=== PATIENT | male | born 1990 | race Hispanic/Latino ===

== ENCOUNTER 2019-01-16 02:49 | Emergency (ER) | payer OTHER ==
[~2019-01-16] VITALS: Ht 182.9 cm; Wt 79.4 kg
--- OUTSIDE RECORDS SUMMARY | 2019-01-16 02:51 | XMS REPORT | Clinical Summary ---
Author Author [facility] Address Unknown Phone Unavailable Care Team Providers Care Extruder Operator Multiple Name Role Phone Tristin Vences PCP Allergies Comments Active Allergy Reactions Severity Noted Date cats Other Swelling 10/23/2012 Medications End Date Status Medication Sig Dispensed Refills Start Date Active multivitamin capsule Take 1 0 capsule by mouth daily. Active buprenorphine-naloxone Place 1 0 (SUBOXONE) 2-0.5 mg Subl tablet under the tongue daily. Active Problems Problem Noted Date Epigastric pain 07/07/2016 Chronic hepatitis C 01/26/2013 Risk of as incidental finding, in female partner 12/03/2012 Depression 12/03/2012 HCV antibody positive 10/23/2012 Abnormal LFTs 10/23/2012 Anemia 10/23/2012 HCV (hepatitis C virus) 10/23/2012 Hair loss 10/23/2012 Immunity status testing 10/23/2012 Family History Medical History Relation Name Comments Unremarkable Brother Unremarkable Father Unremarkable Mother Eczema Sister Relation Name Status Comments Brother Alive Father Alive Mother Alive Sister Alive Social History Date Tobacco Use Types Packs/Day Years Used Quit: 06/22/2015 Former Smoker Cigarettes 2 Alcohol Use Drinks/Week oz/Week Comments No Sex Assigned at Date Recorded Not on file Industry Job Start Date Occupation Not on file Not on file Not on file Travel End Travel History Travel Start No recent travel history available. Last Filed Vital Signs Not on file Plan of Treatment Not on file Results Not on fileafter 01/15/2018 Insurance Payer Benefit Subscriber ID Type Phone Address Plan / Group MEDICAID - MEDICAID [facility] xxxxxxxxx Medicaid CARE COMM STAR Contracted PLAN
--- OUTSIDE RECORDS SUMMARY | 2019-01-16 02:52 | XMS REPORT ---
Author Author [facility] Address Unknown Phone Unavailable Care Team Providers Care Supervisor Reclamation Name Role Phone PHILIP CEBALLOS Unavailable Unavailable SOCORRO ANTONY Unavailable Unavailable THOMAS QUIROGA Unavailable Unavailable Nick SNELL Unavailable Unavailable MEAGHAN BAKER Unavailable Unavailable Problems This patient has no known problems. Allergies, Adverse Reactions, Alerts This patient has no known allergies or adverse reactions. Medications This patient has no known medications. Results Test Description Test Time Test Comments Text Results Atomic Results Result Comments HEPATITIS C PCR, QUANTITATIVE 2017-11-26 18:49:00 HCV RESULT COMPONENT (BEAKER) (test yfnd=2689) HCV RNA not detected HCV RNA not detected This test uses a Real-Time Polymerase Chain Reaction (RT-PCR) methodology and wa s performed using AMBER Ampliprep/AMBER TaqMan HCV test kit version 2.0 ([employer]).Reportable range for this assay is 15 - 100,000,000 IU per mL (1.18 - 8.00 Log IU/mL).BASIC METABOLIC [id number] 13:12:00* Test Item Value Reference Range Comments SODIUM (BEAKER) (test zbkk=240) 139 meq/L 136-145 POTASSIUM (BEAKER) (test ctya=267) 4.0 meq/L 3.5-5.1 Specimen slightly hemolyzed CHLORIDE (BEAKER) (test fgmh=038) 106 meq/L 98-107 CO2 (BEAKER) (test xjig=206) 23 meq/L 22-29 BLOOD UREA NITROGEN (BEAKER) (test bxgr=288) 14 mg/dL 7-21 CREATININE (BEAKER) (test twfy=673) 0.80 mg/dL 0.57-1.25 Specimen slightly hemolyzed GLUCOSE RANDOM (BEAKER) (test lxvj=478) 97 mg/dL 70-105 CALCIUM (BEAKER) (test coor=993) 9.5 mg/dL 8.4-10.2 EGFR (BEAKER) (test eodi=4601) mL/min/1.73 sq m INSUFFICIENT CLINICAL DATA TO CALCULATE ESTIMATED GFR. HEPATIC FUNCTION [id number] 12:45:00* Test Item Value Reference Range Comments TOTAL PROTEIN (BEAKER) (test skym=324) 7.3 gm/dL 6.0-8.3 Specimen slightly hemolyzed ALBUMIN (BEAKER) (test pusc=3252) 4.5 g/dL 3.5-5.0 Specimen slightly hemolyzed BILIRUBIN TOTAL (BEAKER) (test szmi=442) 0.3 mg/dL 0.2-1.2 Specimen slightly hemolyzed BILIRUBIN DIRECT (BEAKER) (test vujp=015) 0.1 mg/dL 0.1-0.5 Specimen slightly hemolyzed ALKALINE PHOSPHATASE (BEAKER) (test htat=502) 76 U/L 40-150 AST (SGOT) (BEAKER) (test tlfo=022) 16 U/L 5-34 Specimen slightly hemolyzed ALT (SGPT) (BEAKER) (test tqzf=098) 8 U/L 6-55 Specimen slightly hemolyzed CBC W/PLT COUNT & AUTO [id number] 12:23:00* Test Item Value Reference Range Comments WHITE BLOOD CELL COUNT (BEAKER) (test syhk=043) 5.9 K/ L 3.5-10.5 RED BLOOD CELL COUNT (BEAKER) (test ydyf=460) 4.07 M/ L 4.63-6.08 HEMOGLOBIN (BEAKER) (test gtts=637) 12.5 GM/DL 13.7-17.5 HEMATOCRIT (BEAKER) (test zeed=111) 37.8 % 40.1-51.0 MEAN CORPUSCULAR VOLUME (BEAKER) (test akwf=551) 92.9 fL 79.0-92.2 MEAN CORPUSCULAR HEMOGLOBIN (BEAKER) (test rrje=134) 30.7 pg 25.7-32.2 MEAN CORPUSCULAR HEMOGLOBIN CONC (BEAKER) (test dqma=025) 33.1 GM/DL 32.3-36.5 RED CELL DISTRIBUTION WIDTH (BEAKER) (test cgke=072) 13.1 % 11.6-14.4 PLATELET COUNT (BEAKER) (test anay=017) 293 K/CU MM 150-450 MEAN PLATELET VOLUME (BEAKER) (test ilkb=904) 10.5 fL 9.4-12.4 NUCLEATED RED BLOOD CELLS (BEAKER) (test ivca=726) 0 /100 WBC 0-0 NEUTROPHILS RELATIVE PERCENT (BEAKER) (test mbji=479) 61 % LYMPHOCYTES RELATIVE PERCENT (BEAKER) (test yxzj=686) 27 % MONOCYTES RELATIVE PERCENT (BEAKER) (test johq=427) 7 % EOSINOPHILS RELATIVE PERCENT (BEAKER) (test ixbr=684) 4 % BASOPHILS RELATIVE PERCENT (BEAKER) (test cpxu=262) 1 % NEUTROPHILS ABSOLUTE COUNT (BEAKER) (test fzwf=352) 3.56 K/ L 1.78-5.38 LYMPHOCYTES ABSOLUTE COUNT (BEAKER) (test mwzc=971) 1.59 K/ L 1.32-3.57 MONOCYTES ABSOLUTE COUNT (BEAKER) (test wumo=927) 0.43 K/ L 0.30-0.82 EOSINOPHILS ABSOLUTE COUNT (BEAKER) (test drof=248) 0.21 K/ L 0.04-0.54 BASOPHILS ABSOLUTE COUNT (BEAKER) (test jnrl=247) 0.05 K/ L 0.01-0.08 IMMATURE GRANULOCYTES-RELATIVE PERCENT (BEAKER) (test ubwx=3659) 0 % 0-1 HEPATITIS C PCR, [id number] 09:23:00* Test Item Value Reference Range Comments HCV RESULT COMPONENT (BEAKER) (test yauz=4135) HCV RNA not detected HCV RNA not detected This test uses a Real-Time Polymerase Chain Reaction (RT-PCR) methodology and wa s performed using [employer] Ampliprep/AMBER TaqMan HCV test kit version 2.0 ([employer]).Reportable range for this assay is 15 - 100,000,000 IU per mL (1.18 - 8.00 Log IU/mL).BASIC METABOLIC [id number] 16:17:00* Test Item Value Reference Range Comments SODIUM (BEAKER) (test dyuy=837) 138 meq/L 136-145 POTASSIUM (BEAKER) (test pfre=234) 3.7 meq/L 3.5-5.1 CHLORIDE (BEAKER) (test ccrx=139) 102 meq/L 98-107 CO2 (BEAKER) (test dxbg=963) 28 meq/L 22-29 BLOOD UREA NITROGEN (BEAKER) (test uugj=583) 12 mg/dL 7-21 CREATININE (BEAKER) (test dohs=440) 0.79 mg/dL 0.57-1.25 GLUCOSE RANDOM (BEAKER) (test yiut=464) 65 mg/dL 70-105 CALCIUM (BEAKER) (test skwq=828) 9.7 mg/dL 8.4-10.2 EGFR (BEAKER) (test xyqy=8953) mL/min/1.73 sq m INSUFFICIENT CLINICAL DATA TO CALCULATE ESTIMATED GFR. HEPATIC FUNCTION [id number] 16:16:00* Test Item Value Reference Range Comments TOTAL PROTEIN (BEAKER) (test bqco=056) 6.8 gm/dL 6.0-8.3 ALBUMIN (BEAKER) (test llxv=9410) 4.6 g/dL 3.5-5.0 BILIRUBIN TOTAL (BEAKER) (test tbcz=052) 0.7 mg/dL 0.2-1.2 BILIRUBIN DIRECT (BEAKER) (test sqll=987) 0.2 mg/dL 0.1-0.5 ALKALINE PHOSPHATASE (BEAKER) (test lkbg=660) 74 U/L 40-150 AST (SGOT) (BEAKER) (test jeph=568) 16 U/L 5-34 ALT (SGPT) (BEAKER) (test ijtd=007) 7 U/L 6-55 CBC W/PLT COUNT & AUTO [id number] 15:58:00* Test Item Value Reference Range Comments WHITE BLOOD CELL COUNT (BEAKER) (test xffv=662) 5.9 K/ L 3.5-10.5 RED BLOOD CELL COUNT (BEAKER) (test mhgk=251) 4.59 M/ L 4.63-6.08 HEMOGLOBIN (BEAKER) (test eisb=699) 13.8 GM/DL 13.7-17.5 HEMATOCRIT (BEAKER) (test bofc=091) 41.8 % 40.1-51.0 MEAN CORPUSCULAR VOLUME (BEAKER) (test hita=702) 91.1 fL 79.0-92.2 MEAN CORPUSCULAR HEMOGLOBIN (BEAKER) (test kxxj=333) 30.1 pg 25.7-32.2 MEAN CORPUSCULAR HEMOGLOBIN CONC (BEAKER) (test lklo=615) 33.0 GM/DL 32.3-36.5 RED CELL DISTRIBUTION WIDTH (BEAKER) (test lued=308) 13.6 % 11.6-14.4 PLATELET COUNT (BEAKER) (test pxyb=790) 295 K/CU MM 150-450 MEAN PLATELET VOLUME (BEAKER) (test ikdp=884) 10.4 fL 9.4-12.4 NUCLEATED RED BLOOD CELLS (BEAKER) (test vrzl=825) 0 /100 WBC 0-0 NEUTROPHILS RELATIVE PERCENT (BEAKER) (test ffrp=326) 64 % LYMPHOCYTES RELATIVE PERCENT (BEAKER) (test fjrm=877) 25 % MONOCYTES RELATIVE PERCENT (BEAKER) (test axiz=402) 7 % EOSINOPHILS RELATIVE PERCENT (BEAKER) (test mdyr=583) 3 % BASOPHILS RELATIVE PERCENT (BEAKER) (test ckgw=771) 1 % NEUTROPHILS ABSOLUTE COUNT (BEAKER) (test qeyc=367) 3.77 K/ L 1.78-5.38 LYMPHOCYTES ABSOLUTE COUNT (BEAKER) (test jrqy=849) 1.51 K/ L 1.32-3.57 MONOCYTES ABSOLUTE COUNT (BEAKER) (test oktt=389) 0.41 K/ L 0.30-0.82 EOSINOPHILS ABSOLUTE COUNT (BEAKER) (test sjca=006) 0.20 K/ L 0.04-0.54 BASOPHILS ABSOLUTE COUNT (BEAKER) (test utin=166) 0.03 K/ L 0.01-0.08 IMMATURE GRANULOCYTES-RELATIVE PERCENT (BEAKER) (test kqel=0976) 0 % 0-1 BASIC METABOLIC [id number] 16:17:00* Test Item Value Reference Range Comments SODIUM (BEAKER) (test rjxj=192) 140 meq/L 136-145 POTASSIUM (BEAKER) (test iqeo=249) 3.8 meq/L 3.5-5.1 CHLORIDE (BEAKER) (test yzta=289) 105 meq/L 98-107 CO2 (BEAKER) (test qkbd=164) 28 meq/L 22-29 BLOOD UREA NITROGEN (BEAKER) (test yhvm=804) 17 mg/dL 7-21 CREATININE (BEAKER) (test meau=700) 0.78 mg/dL 0.57-1.25 GLUCOSE RANDOM (BEAKER) (test xqec=970) 76 mg/dL 70-105 CALCIUM (BEAKER) (test qigh=207) 9.4 mg/dL 8.4-10.2 EGFR (BEAKER) (test cnzv=3940) mL/min/1.73 sq m INSUFFICIENT CLINICAL DATA TO CALCULATE ESTIMATED GFR. HEPATIC FUNCTION [id number] 16:07:00* Test Item Value Reference Range Comments TOTAL PROTEIN (BEAKER) (test qhgr=296) 7.7 gm/dL 6.0-8.3 ALBUMIN (BEAKER) (test faav=7543) 4.4 g/dL 3.5-5.0 BILIRUBIN TOTAL (BEAKER) (test kmxx=944) 0.3 mg/dL 0.2-1.2 BILIRUBIN DIRECT (BEAKER) (test ngbz=220) 0.1 mg/dL 0.1-0.5 ALKALINE PHOSPHATASE (BEAKER) (test qtdg=296) 102 U/L 40-150 AST (SGOT) (BEAKER) (test apbv=971) 16 U/L 5-34 ALT (SGPT) (BEAKER) (test ijhh=870) 9 U/L 6-55 Specimen slightly lipemicCBC W/PLT COUNT & AUTO [id number] 15:38:00 * Test Item Value Reference Range Comments WHITE BLOOD CELL COUNT (BEAKER) (test jiqf=622) 6.9 K/ L 3.5-10.5 RED BLOOD CELL COUNT (BEAKER) (test oyok=524) 4.44 M/ L 4.63-6.08 HEMOGLOBIN (BEAKER) (test imki=147) 13.6 GM/DL 13.7-17.5 HEMATOCRIT (BEAKER) (test egms=128) 41.9 % 40.1-51.0 MEAN CORPUSCULAR VOLUME (BEAKER) (test jctm=816) 94.4 fL 79.0-92.2 MEAN CORPUSCULAR HEMOGLOBIN (BEAKER) (test vmit=823) 30.6 pg 25.7-32.2 MEAN CORPUSCULAR HEMOGLOBIN CONC (BEAKER) (test kiqp=706) 32.5 GM/DL 32.3-36.5 RED CELL DISTRIBUTION WIDTH (BEAKER) (test scpx=789) 12.6 % 11.6-14.4 PLATELET COUNT (BEAKER) (test cltm=611) 312 K/CU MM 150-450 MEAN PLATELET VOLUME (BEAKER) (test dwcy=191) 9.7 fL 9.4-12.4 NUCLEATED RED BLOOD CELLS (BEAKER) (test cvpi=354) 0 /100 WBC 0-0 NEUTROPHILS RELATIVE PERCENT (BEAKER) (test zccv=363) 71 % LYMPHOCYTES RELATIVE PERCENT (BEAKER) (test hsad=385) 18 % MONOCYTES RELATIVE PERCENT (BEAKER) (test qnoc=865) 8 % EOSINOPHILS RELATIVE PERCENT (BEAKER) (test qhwu=904) 2 % BASOPHILS RELATIVE PERCENT (BEAKER) (test ofil=014) 1 % NEUTROPHILS ABSOLUTE COUNT (BEAKER) (test oetm=853) 4.90 K/ L 1.78-5.38 LYMPHOCYTES ABSOLUTE COUNT (BEAKER) (test cnby=497) 1.26 K/ L 1.32-3.57 MONOCYTES ABSOLUTE COUNT (BEAKER) (test henn=256) 0.53 K/ L 0.30-0.82 EOSINOPHILS ABSOLUTE COUNT (BEAKER) (test hgfp=708) 0.16 K/ L 0.04-0.54 BASOPHILS ABSOLUTE COUNT (BEAKER) (test flbv=443) 0.04 K/ L 0.01-0.08 IMMATURE GRANULOCYTES-RELATIVE PERCENT (BEAKER) (test ggxx=3906) 1 % 0-1 BASIC METABOLIC [id number] 14:34:00* Test Item Value Reference Range Comments SODIUM (BEAKER) (test ctwy=081) 140 meq/L 136-145 POTASSIUM (BEAKER) (test xaah=613) 4.6 meq/L 3.5-5.1 CHLORIDE (BEAKER) (test caao=860) 105 meq/L 98-107 CO2 (BEAKER) (test vjdx=627) 29 meq/L 22-29 BLOOD UREA NITROGEN (BEAKER) (test ulot=079) 15 mg/dL 7-21 CREATININE (BEAKER) (test etgx=753) 0.89 mg/dL 0.57-1.25 GLUCOSE RANDOM (BEAKER) (test jdzy=001) 103 mg/dL 70-105 CALCIUM (BEAKER) (test ldea=656) 9.7 mg/dL 8.4-10.2 EGFR (BEAKER) (test sfap=0968) mL/min/1.73 sq m INSUFFICIENT CLINICAL DATA TO CALCULATE ESTIMATED GFR. HEPATIC FUNCTION [id number] 14:22:00* Test Item Value Reference Range Comments TOTAL PROTEIN (BEAKER) (test robl=218) 7.9 gm/dL 6.0-8.3 ALBUMIN (BEAKER) (test sknf=6574) 4.6 g/dL 3.5-5.0 BILIRUBIN TOTAL (BEAKER) (test ygjh=553) 0.5 mg/dL 0.2-1.2 BILIRUBIN DIRECT (BEAKER) (test hjsu=040) 0.2 mg/dL 0.1-0.5 ALKALINE PHOSPHATASE (BEAKER) (test pcvt=244) 107 U/L 40-150 AST (SGOT) (BEAKER) (test txik=784) 15 U/L 5-34 ALT (SGPT) (BEAKER) (test wpkc=146) 11 U/L 6-55 PROTHROMBIN [id number] 14:05:00* Test Item Value Reference Range Comments PROTIME (BEAKER) (test bvxb=216) 14.5 seconds 11.7-14.7 INR (BEAKER) (test ihia=564) 1.1 <=5.9 RECOMMENDED COUMADIN/WARFARIN INR THERAPY RANGESSTANDARD DOSE: 2.0 - 3.0 Inclu chelsie: PROPHYLAXIS for venous thrombosis, systemic embolization; TREATMENT for angela ous thrombosis and/or pulmonary embolus.HIGH RISK: Target INR is 2.5-3.5 for pat ients with mechanical heart valves.CBC W/PLT COUNT & AUTO [id number] 13:48:00* Test Item Value Reference Range Comments WHITE BLOOD CELL COUNT (BEAKER) (test ybez=270) 6.1 K/ L 3.5-10.5 RED BLOOD CELL COUNT (BEAKER) (test hnbj=051) 4.41 M/ L 4.63-6.08 HEMOGLOBIN (BEAKER) (test brsb=386) 13.5 GM/DL 13.7-17.5 HEMATOCRIT (BEAKER) (test efcf=707) 42.1 % 40.1-51.0 MEAN CORPUSCULAR VOLUME (BEAKER) (test rhxg=822) 95.5 fL 79.0-92.2 MEAN CORPUSCULAR HEMOGLOBIN (BEAKER) (test mdht=102) 30.6 pg 25.7-32.2 MEAN CORPUSCULAR HEMOGLOBIN CONC (BEAKER) (test vfjy=545) 32.1 GM/DL 32.3-36.5 RED CELL DISTRIBUTION WIDTH (BEAKER) (test jojh=300) 13.2 % 11.6-14.4 PLATELET COUNT (BEAKER) (test tnpq=539) 311 K/CU MM 150-450 MEAN PLATELET VOLUME (BEAKER) (test oiwb=421) 9.5 fL 9.4-12.4 NUCLEATED RED BLOOD CELLS (BEAKER) (test nfjg=434) 0 /100 WBC 0-0 NEUTROPHILS RELATIVE PERCENT (BEAKER) (test xnhn=337) 63 % LYMPHOCYTES RELATIVE PERCENT (BEAKER) (test afit=126) 26 % MONOCYTES RELATIVE PERCENT (BEAKER) (test ztnq=193) 6 % EOSINOPHILS RELATIVE PERCENT (BEAKER) (test ndwz=210) 4 % BASOPHILS RELATIVE PERCENT (BEAKER) (test ilei=083) 1 % NEUTROPHILS ABSOLUTE COUNT (BEAKER) (test hsyq=254) 3.79 K/ L 1.78-5.38 LYMPHOCYTES ABSOLUTE COUNT (BEAKER) (test gvwf=185) 1.60 K/ L 1.32-3.57 MONOCYTES ABSOLUTE COUNT (BEAKER) (test jeeb=316) 0.39 K/ L 0.30-0.82 EOSINOPHILS ABSOLUTE COUNT (BEAKER) (test gory=991) 0.22 K/ L 0.04-0.54 BASOPHILS ABSOLUTE COUNT (BEAKER) (test sgpy=764) 0.03 K/ L 0.01-0.08 IMMATURE GRANULOCYTES-RELATIVE PERCENT (BEAKER) (test ipkw=4272) 0 % 0-1 HEPATITIS C PCR, [id number] 08:42:00* Test Item Value Reference Range Comments HCV RESULT COMPONENT (BEAKER) (test tdan=3198) HCV RNA not detected HCV RNA not detected This test uses a Real-Time Polymerase Chain Reaction (RT-PCR) methodology and wa s performed using [employer] Ampliprep/[employer]BER TaqMan HCV test kit version 2.0 ([employer]Reportable range for this assay is 15 - 100,000,000 IU per mL (1.18 - 8.00 Log IU/mL).VITAMIN B12 AND [id number] 16:32:00* Test Item Value Reference Range Comments VITAMIN B12 (BEAKER) (test pevv=276) 795 pg/mL 213-816 FOLATE (BEAKER) (test fyrd=037) 10.7 ng/mL >=7.0 [id number] 16:22:00* Test Item Value Reference Range Comments FERRITIN (BEAKER) (test ztvr=695) 124 ng/mL 5-275 IRON, TIBC, % SAT. (WITHOUT FERRITIN)2017-04-15 15:34:00* Test Item Value Reference Range Comments IRON (BEAKER) (test lzzg=266) 188 ug/dL 40-160 TOTAL IRON BINDING CAPACITY (BEAKER) (test afge=342) 363 ug/dL 250-450 IRON % SATURATION (2) (BEAKER) (test buqa=8452) 52 % 20-55 BASIC METABOLIC [id number] 15:33:00* Test Item Value Reference Range Comments SODIUM (BEAKER) (test yygq=228) 140 meq/L 136-145 POTASSIUM (BEAKER) (test oeim=662) 4.1 meq/L 3.5-5.1 CHLORIDE (BEAKER) (test wozh=469) 106 meq/L 98-107 CO2 (BEAKER) (test rjli=609) 28 meq/L 22-29 BLOOD UREA NITROGEN (BEAKER) (test tqdc=014) 14 mg/dL 7-21 CREATININE (BEAKER) (test hzcm=633) 0.83 mg/dL 0.57-1.25 GLUCOSE RANDOM (BEAKER) (test bdyb=609) 86 mg/dL 70-105 CALCIUM (BEAKER) (test cqoc=443) 9.7 mg/dL 8.4-10.2 EGFR (BEAKER) (test fxez=3923) mL/min/1.73 sq m INSUFFICIENT CLINICAL DATA TO CALCULATE ESTIMATED GFR. HEPATIC FUNCTION [id number] 15:31:00* Test Item Value Reference Range Comments TOTAL PROTEIN (BEAKER) (test bina=597) 7.6 gm/dL 6.0-8.3 ALBUMIN (BEAKER) (test ajfc=3305) 4.5 g/dL 3.5-5.0 BILIRUBIN TOTAL (BEAKER) (test mimp=829) 0.6 mg/dL 0.2-1.2 BILIRUBIN DIRECT (BEAKER) (test twbq=375) 0.3 mg/dL 0.1-0.5 ALKALINE PHOSPHATASE (BEAKER) (test kymg=765) 93 U/L 40-150 AST (SGOT) (BEAKER) (test kstz=765) 16 U/L 5-34 ALT (SGPT) (BEAKER) (test mqhv=058) 12 U/L 6-55 CBC W/PLT COUNT & AUTO [id number] 14:57:00* Test Item Value Reference Range Comments WHITE BLOOD CELL COUNT (BEAKER) (test rlgr=919) 6.1 K/ L 3.5-10.5 RED BLOOD CELL COUNT (BEAKER) (test egqf=901) 4.28 M/ L 4.63-6.08 HEMOGLOBIN (BEAKER) (test pyww=550) 13.0 GM/DL 13.7-17.5 HEMATOCRIT (BEAKER) (test znqz=860) 39.9 % 40.1-51.0 MEAN CORPUSCULAR VOLUME (BEAKER) (test hymm=884) 93.2 fL 79.0-92.2 MEAN CORPUSCULAR HEMOGLOBIN (BEAKER) (test pkns=926) 30.4 pg 25.7-32.2 MEAN CORPUSCULAR HEMOGLOBIN CONC (BEAKER) (test nfvs=721) 32.6 GM/DL 32.3-36.5 RED CELL DISTRIBUTION WIDTH (BEAKER) (test vyeh=953) 13.3 % 11.6-14.4 PLATELET COUNT (BEAKER) (test iyge=477) 319 K/CU MM 150-450 MEAN PLATELET VOLUME (BEAKER) (test bpjf=413) 9.3 fL 9.4-12.4 NUCLEATED RED BLOOD CELLS (BEAKER) (test dgll=150) 0 /100 WBC 0-0 NEUTROPHILS RELATIVE PERCENT (BEAKER) (test fuzj=409) 69 % LYMPHOCYTES RELATIVE PERCENT (BEAKER) (test ensl=851) 21 % MONOCYTES RELATIVE PERCENT (BEAKER) (test rwfp=609) 7 % EOSINOPHILS RELATIVE PERCENT (BEAKER) (test kexe=946) 3 % BASOPHILS RELATIVE PERCENT (BEAKER) (test nsxq=626) 1 % NEUTROPHILS ABSOLUTE COUNT (BEAKER) (test vgtw=269) 4.24 K/ L 1.78-5.38 LYMPHOCYTES ABSOLUTE COUNT (BEAKER) (test xyhk=474) 1.26 K/ L 1.32-3.57 MONOCYTES ABSOLUTE COUNT (BEAKER) (test scut=395) 0.40 K/ L 0.30-0.82 EOSINOPHILS ABSOLUTE COUNT (BEAKER) (test eqnj=133) 0.17 K/ L 0.04-0.54 BASOPHILS ABSOLUTE COUNT (BEAKER) (test hfpq=754) 0.05 K/ L 0.01-0.08 IMMATURE GRANULOCYTES-RELATIVE PERCENT (BEAKER) (test wiie=8375) 0 % 0-1 CBC W/PLT COUNT & AUTO [id number] 15:51:00* Test Item Value Reference Range Comments WHITE BLOOD CELL COUNT (BEAKER) (test ogsf=775) 6.1 K/ L 3.5-10.5 RED BLOOD CELL COUNT (BEAKER) (test lspf=744) 4.30 M/ L 4.63-6.08 HEMOGLOBIN (BEAKER) (test rhbp=077) 13.3 GM/DL 13.7-17.5 HEMATOCRIT (BEAKER) (test cxpx=830) 40.0 % 40.1-51.0 MEAN CORPUSCULAR VOLUME (BEAKER) (test braf=218) 93.0 fL 79.0-92.2 MEAN CORPUSCULAR HEMOGLOBIN (BEAKER) (test wfaf=140) 30.9 pg 25.7-32.2 MEAN CORPUSCULAR HEMOGLOBIN CONC (BEAKER) (test qwjd=139) 33.3 GM/DL 32.3-36.5 RED CELL DISTRIBUTION WIDTH (BEAKER) (test snqg=022) 13.2 % 11.6-14.4 PLATELET COUNT (BEAKER) (test dktx=396) 383 K/CU MM 150-450 MEAN PLATELET VOLUME (BEAKER) (test ufpt=167) 9.4 fL 9.4-12.4 NUCLEATED RED BLOOD CELLS (BEAKER) (test goeq=688) 0 /100 WBC 0-0 NEUTROPHILS RELATIVE PERCENT (BEAKER) (test cvrm=980) 66 % LYMPHOCYTES RELATIVE PERCENT (BEAKER) (test kajk=228) 22 % MONOCYTES RELATIVE PERCENT (BEAKER) (test dsvj=129) 7 % EOSINOPHILS RELATIVE PERCENT (BEAKER) (test rkvp=420) 4 % BASOPHILS RELATIVE PERCENT (BEAKER) (test lify=753) 1 % NEUTROPHILS ABSOLUTE COUNT (BEAKER) (test klhb=096) 4.03 K/ L 1.78-5.38 LYMPHOCYTES ABSOLUTE COUNT (BEAKER) (test lovj=079) 1.36 K/ L 1.32-3.57 MONOCYTES ABSOLUTE COUNT (BEAKER) (test bnvg=441) 0.41 K/ L 0.30-0.82 EOSINOPHILS ABSOLUTE COUNT (BEAKER) (test ctzo=800) 0.25 K/ L 0.04-0.54 BASOPHILS ABSOLUTE COUNT (BEAKER) (test byia=170) 0.04 K/ L 0.01-0.08 IMMATURE GRANULOCYTES-RELATIVE PERCENT (BEAKER) (test zalg=7880) 0 % 0-1 HEPATIC FUNCTION [id number] 15:07:00* Test Item Value Reference Range Comments TOTAL PROTEIN (BEAKER) (test pxni=527) 8.0 gm/dL 6.0-8.3 ALBUMIN (BEAKER) (test wdhd=9138) 4.7 g/dL 3.5-5.0 BILIRUBIN TOTAL (BEAKER) (test yxkb=956) 1.0 mg/dL 0.2-1.2 BILIRUBIN DIRECT (BEAKER) (test clao=131) 0.4 mg/dL 0.1-0.5 ALKALINE PHOSPHATASE (BEAKER) (test jxxi=052) 96 U/L 40-150 AST (SGOT) (BEAKER) (test lhdd=430) 19 U/L 5-34 ALT (SGPT) (BEAKER) (test rktm=176) 16 U/L 6-55 BASIC METABOLIC [id number] 15:07:00* Test Item Value Reference Range Comments SODIUM (BEAKER) (test ilii=551) 140 meq/L 136-145 POTASSIUM (BEAKER) (test glpu=490) 4.2 meq/L 3.5-5.1 CHLORIDE (BEAKER) (test fzsf=522) 105 meq/L 98-107 CO2 (BEAKER) (test rlec=031) 28 meq/L 22-29 BLOOD UREA NITROGEN (BEAKER) (test yvkv=990) 16 mg/dL 7-21 CREATININE (BEAKER) (test gdvj=566) 0.86 mg/dL 0.57-1.25 GLUCOSE RANDOM (BEAKER) (test vwbn=781) 82 mg/dL 70-105 CALCIUM (BEAKER) (test mthk=729) 9.7 mg/dL 8.4-10.2 EGFR (BEAKER) (test xpel=8187) 106 mL/min/1.73 sq m ESTIMATED GFR IS NOT ACCURATE CREATININE CLEARANCE IN PREDICTING GLOMERULAR FILTRATION RATE. ESTIMATED GFR IS NOT APPLICABLE FOR DIALYSIS PATIENTS. HEPATITIS B SURFACE [id number] 21:41:00* Test Item Value Reference Range Comments HEPATITIS B SURFACE ANTIBODY (BEAKER) (test evtm=824) 94.4 mIU/mL <8.0 HEPATITIS B CORE ANTIBODY, [id number] 21:08:00* Test Item Value Reference Range Comments HEPATITIS B CORE TOTAL ANTIBODY (BEAKER) (test viyu=753) Nonreactive Nonreactive HEPATITIS B SURFACE [id number] 21:07:00* Test Item Value Reference Range Comments HEPATITIS B SURFACE ANTIGEN (2) (BEAKER) (test aujp=2248) Nonreactive Nonreactive ALPHA FETOPROTEIN (AFP), TUMOR [id number] 17:23:00* Test Item Value Reference Range Comments ALPHA-FETOPROTEIN (BEAKER) (test aprw=8831) 3.4 ng/mL <10.0 HEPATIC FUNCTION [id number] 16:38:00* Test Item Value Reference Range Comments TOTAL PROTEIN (BEAKER) (test efsd=168) 7.5 gm/dL 6.0-8.3 ALBUMIN (BEAKER) (test rero=3739) 4.4 g/dL 3.5-5.0 BILIRUBIN TOTAL (BEAKER) (test chlw=108) 0.4 mg/dL 0.2-1.2 BILIRUBIN DIRECT (BEAKER) (test cmll=176) 0.2 mg/dL 0.1-0.5 ALKALINE PHOSPHATASE (BEAKER) (test qbdj=392) 78 U/L 40-150 AST (SGOT) (BEAKER) (test lato=187) 51 U/L 5-34 ALT (SGPT) (BEAKER) (test ltwy=332) 45 U/L 6-55 BASIC METABOLIC [id number] 16:38:00* Test Item Value Reference Range Comments SODIUM (BEAKER) (test ymql=426) 140 meq/L 136-145 POTASSIUM (BEAKER) (test wckd=158) 4.3 meq/L 3.5-5.1 CHLORIDE (BEAKER) (test hioy=105) 104 meq/L 98-107 CO2 (BEAKER) (test nebp=373) 30 meq/L 22-29 BLOOD UREA NITROGEN (BEAKER) (test atma=001) 8 mg/dL 7-21 CREATININE (BEAKER) (test noai=514) 0.80 mg/dL 0.57-1.25 GLUCOSE RANDOM (BEAKER) (test jhdv=700) 89 mg/dL 70-105 CALCIUM (BEAKER) (test fwbp=864) 9.8 mg/dL 8.4-10.2 EGFR (BEAKER) (test ktde=8106) 115 mL/min/1.73 sq m ESTIMATED GFR IS NOT ACCURATE CREATININE CLEARANCE IN PREDICTING GLOMERULAR FILTRATION RATE. ESTIMATED GFR IS NOT APPLICABLE FOR DIALYSIS PATIENTS. PROTHROMBIN [id number] 15:51:00* Test Item Value Reference Range Comments PROTIME (BEAKER) (test tmxs=329) 13.5 seconds 11.7-14.7 INR (BEAKER) (test zmjm=599) 1.0 <=5.9 RECOMMENDED COUMADIN/WARFARIN INR THERAPY RANGESSTANDARD DOSE: 2.0 - 3.0 Inclu chelsie: PROPHYLAXIS for venous thrombosis, systemic embolization; TREATMENT for angela ous thrombosis and/or pulmonary embolus.HIGH RISK: Target INR is 2.5-3.5 for pat ients with mechanical heart valves.CBC W/PLT COUNT & AUTO [id number] 15:44:00* Test Item Value Reference Range Comments WHITE BLOOD CELL COUNT (BEAKER) (test zzsz=288) 7.1 K/ L 3.5-10.5 RED BLOOD CELL COUNT (BEAKER) (test igfv=399) 4.11 M/ L 4.63-6.08 HEMOGLOBIN (BEAKER) (test nwzh=087) 12.6 GM/DL 13.7-17.5 HEMATOCRIT (BEAKER) (test xrlv=292) 38.2 % 40.1-51.0 MEAN CORPUSCULAR VOLUME (BEAKER) (test hqhh=767) 92.9 fL 79.0-92.2 MEAN CORPUSCULAR HEMOGLOBIN (BEAKER) (test mqri=232) 30.7 pg 25.7-32.2 MEAN CORPUSCULAR HEMOGLOBIN CONC (BEAKER) (test nsff=853) 33.0 GM/DL 32.3-36.5 RED CELL DISTRIBUTION WIDTH (BEAKER) (test tbmq=013) 13.3 % 11.6-14.4 PLATELET COUNT (BEAKER) (test mkny=372) 294 K/CU MM 150-450 MEAN PLATELET VOLUME (BEAKER) (test omry=270) 9.8 fL 9.4-12.4 NUCLEATED RED BLOOD CELLS (BEAKER) (test rqim=871) 0 /100 WBC 0-0 NEUTROPHILS RELATIVE PERCENT (BEAKER) (test rqaj=219) 60 % LYMPHOCYTES RELATIVE PERCENT (BEAKER) (test dexu=435) 30 % MONOCYTES RELATIVE PERCENT (BEAKER) (test bhff=962) 7 % EOSINOPHILS RELATIVE PERCENT (BEAKER) (test jvfz=897) 3 % BASOPHILS RELATIVE PERCENT (BEAKER) (test fnbz=362) 1 % NEUTROPHILS ABSOLUTE COUNT (BEAKER) (test arpx=206) 4.19 K/ L 1.78-5.38 LYMPHOCYTES ABSOLUTE COUNT (BEAKER) (test xyca=671) 2.10 K/ L 1.32-3.57 MONOCYTES ABSOLUTE COUNT (BEAKER) (test avac=667) 0.46 K/ L 0.30-0.82 EOSINOPHILS ABSOLUTE COUNT (BEAKER) (test aqln=222) 0.22 K/ L 0.04-0.54 BASOPHILS ABSOLUTE COUNT (BEAKER) (test cqri=244) 0.05 K/ L 0.01-0.08 IMMATURE GRANULOCYTES-RELATIVE PERCENT (BEAKER) (test pkqn=9109) 0 % 0-1
[2019-01-16 03:30] VITALS: BP 160/85
== END 2019-01-16 03:40 | disposition home or self-care (01) ==
LOC: FSED 02:49
DX: M79.652 Pain in left thigh (principal); M79.89 Other specified soft tissue disorders; M62.838 Other muscle spasm; F41.1 Generalized anxiety disorder
CPT/HCPCS: 99282

== ENCOUNTER 2019-09-23 19:48 | Emergency (ER) | payer OTHER ==
[~2019-09-23] VITALS: Ht 182.9 cm; Wt 81.6 kg
--- NOTE | 2019-09-23 20:51 | Diagnostic Imaging Report ---
EXAM: PA and lateral views of the chest. COMPARISON: None CLINICAL HISTORY: ^chest pain FINDINGS: Lines/tubes: None. Lungs: The lungs are well inflated and clear. Pleura: There is no pleural effusion or pneumothorax. Heart and mediastinum: The cardiac silhouette is within normal limits. Prominent bilateral hilar. Bones and soft tissues: No acute bony abnormalities. IMPRESSION: Indeterminate prominence of bilateral hilar may reflect peribronchial wall thickening. Recommend follow-up chest radiograph in 3-4 weeks to demonstrate the stability. Signed by: Dr. Lucie Fish M.D. on 09/23/2019 8:48 PM
[2019-09-23 21:40] VITALS: BP 158/92
== END 2019-09-23 21:40 | disposition home or self-care (01) ==
LOC: FSED 19:48
DX: R07.89 Other chest pain (principal); F41.9 Anxiety disorder, unspecified; B19.20 Unspecified viral hepatitis C without hepatic coma
CPT/HCPCS: 71046; 80053; 82553; 84484; 85025; 85379; 99283

== ENCOUNTER 2019-12-25 21:48 | Emergency (ER) | payer OTHER ==
[~2019-12-25] VITALS: Ht 182.9 cm; Wt 81.6 kg
[2019-12-25] MEDS ORDERED: DONNATAL/LIDOCAINE/MAALOX 30 ML SUSP PO ONE (22:45)
[2019-12-25] MEDS ORDERED: LIDOCAINE VISC 2% SOLN 15 ML UDC ONE (22:51)
[2019-12-25] MEDS ORDERED: BELLADONNA ALK/PHENOBARBITAL 5 ML UDC ONE (22:51)
[2019-12-25] MEDS ORDERED: MAGNESIUM/ALUMINUM/SIMETHICONE 30 ML UDC ONE (22:52)
--- NOTE | 2019-12-26 00:22 | Diagnostic Imaging Report ---
EXAMINATION: CXR 2 VIEW - HOPD INDICATION: Chest pain COMPARISON: Chest x-ray 09/23/2019 FINDINGS: TUBES and LINES: None. LUNGS: Normal lung volumes. Lungs are clear. No consolidations. PLEURA: No pleural effusion or pneumothorax. HEART AND MEDIASTINUM: The cardiomediastinal silhouette is unremarkable. BONES AND SOFT TISSUES: No acute osseous lesion. Soft tissues are unremarkable. UPPER ABDOMEN: No free air under the diaphragm. IMPRESSION: No acute thoracic radiographic abnormality. Signed by: Wei Ray DO on 12/26/2019 12:19 AM
--- NOTE | 2019-12-26 00:41 | Emergency Department Note ---
History of Present Illnes History of Present Illness Chief Complaint: Chest Pain History of Present Illness This is a 29 year old male with a chief complaint of chest pain since 2019. This pain has been intermittent. The patient says he gets several these episodes a day the pain is burning in nature and the episodes last approximately 10 seconds. He states naproxen improves the pain. The pain has typically been on the left side of his chest. The patient had had a similar pain on the right side today which concerned him and caused him to come to the em ergency room. He has been seen for this in September of this year and states that he had a negative chest x-ray, EKG, and blood work which were negative. Historian: Patient Arrival Mode: Car Onset (how long ago): month(s) (with durations lasting seconds) Location: chest Quality: burning Radiation: Reports non-radiation Severity: mild Onset quality: sudden Timing of current episode: intermittent Progression: waxing and waning Context: Denies recent surgery Relieving factors: medication (naproxen) Associated symptoms: Denies cough, Denies diaphoresis, Denies nausea/vomiting, Denies syncope Treatments prior to arrival: NSAID Past Medical/Family History Physician Review I have reviewed the patient's past medical and family history. Any updates have been documented here. 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 Physical Exam Related Data Allergies: Coded Allergies: No Known Allergies (Unverified , 12/25/19) Physical Exam CONSTITUTIONAL Constitutional: Present well-developed, Present well-nourished HENT HENT: Present normocephalic, Present atraumatic EYES NECK PULMONARY Pulmonary: Present effort normal, Present breath sounds normal; Absent respiratory distress CARDIOVASCULAR Cardiovascular: Present regular rhythm, Present heart sounds normal, Present capillary refill normal, Present normal rate, Present other (note chest wall tenderness. Chest pain not reproducible with active or passive range of motion.) GASTROINTESTINAL Abdominal: Present soft, Present nontender, Present bowel sounds normal GENITOURINARY SKIN Skin: Present warm, Present dry MUSCULOSKELETAL Musculoskeletal: Present ROM normal NEUROLOGICAL Neurological: Present alert, Present oriented x 3, Present no gross motor or sensory deficits PSYCHOLOGICAL Psychological: Present other (anxious) Results Laboratory Laboratory The patient has a normal CMP and has normal cardiac enzymes the CBC is unremarkable. Lab results reviewed: Yes Imaging Imaging results reviewed: Yes Impressions No acute thoracic radiographic abnormality. Procedures Procedures Procedure: Patient > anxious @ arrival when he had EKG 12 Lead ECG Interpretation ECG Interpretation : ECG: ECG 1 Prior ECG tracings: reviewed Rhythm: sinus rhythm BPM: 116 QRS axis: normal ST segments normal: Yes T waves normal: Yes Other findings: delta wave Assessment & Plan Medical Decision Making MDM Differential diagnosis includes but is not limited to coronary disease, GA, arrhythmia, PE, GERD, muscle strain or sprain, pneumothorax, pleurisy, pneumonia, bronchitis Reassessment Reassessment time: 23:38 Reassessment Patient states that his chest pain resolved with GI cocktail, however is difficult to tell since his chest pain is only lasting seconds. At midnight patient has no chest pain and a heart rate has improved to 100. Assessment & Plan Final Impression: (1) Chest pain Depart Disposition: HOME, SELF-CARE JILLIAN BEAL MD Dec 25, 2019 22:48
== END 2019-12-26 00:45 | disposition home or self-care (01) ==
LOC: FSED 22:35
DX: R07.9 Chest pain, unspecified (principal); F41.9 Anxiety disorder, unspecified; B19.20 Unspecified viral hepatitis C without hepatic coma; Z87.891 Personal history of nicotine dependence
CPT/HCPCS: 71046; 80053; 82553; 84484; 85025; 93005; 99284